=== PATIENT | female | born 1960 | race Caucasian/White ===

== ENCOUNTER 2016-12-16 14:03 | Observation (INO) | payer BC ==
[~2016-12-16] VITALS: Ht 162.6 cm; Wt 73.2 kg
[~2016-12-16 14:03] MED LIST: ACYC400T PO; HYDR-2762 PO; HYDR4TAB PO; OMEP20CA9 PO; ONDA4TAB12 PO; ZOLP5TAB PO
[2016-12-16] MEDS ORDERED: SIMV20TA3 PO (14:24)
[2016-12-16 14:30] VITALS: BP 112/68
[2016-12-16 14:34] LABS: BASO % 0 % (0-3); EOS % 0 % (0-3); HEMATOCRIT 41.4 % (36.0-47.0); LYMPH # 0.8 x10^3/uL (1.0-4.8); LYMPH % 7 % (24-48); MEAN CORPUSCULAR HEMOGLOBIN 30 pg (25-35); MEAN CORPUSCULAR HGB CONC 34 g/dL (31-37); MEAN CORPUSCULAR VOLUME 88 fL (79-100); MONO # 0.5 x10^3/uL (0.0-1.1); MONO % 5 % (0-9); NEUT # 9.1 x10^3uL (1.8-7.7); NEUT % 88 % (31-73); PLATELET COUNT 191 x10^3/uL (140-400); WHITE BLOOD COUNT 10.4 x10^3/uL (4.0-11.0)
[2016-12-16] MEDS ORDERED: fentaNYL PF 100 MCG/2 ML VIAL IV PRN (14:45)
[2016-12-16] MEDS ORDERED: ACETAMINOPHEN 500 MG TABLET PO PRN (14:45)
[2016-12-16] MEDS ORDERED: ONDANSETRON PF 4 MG/2 ML VIAL. IV PRN (14:45)
[2016-12-16] MEDS ORDERED: KETOROLAC 30 MG/ML VIAL. IV PRN (14:45)
[2016-12-16 14:48] LABS: ALBUMIN/GLOBULIN RATIO 1.2 (1.0-1.7); CALCIUM 8.8 mg/dL (8.5-10.1); GFR 57.8; MAGNESIUM 2.1 mg/dL (1.8-2.4); POTASSIUM 3.8 mmol/L (3.5-5.1); TOTAL BILIRUBIN 1.2 mg/dL (0.2-1.0); TOTAL PROTEIN 7.4 g/dL (6.4-8.2)
--- NOTE | 2016-12-16 14:55 | RAD ---
CT head without contrast History: Headache with light sensitivity beginning today. Comparison: None. Procedure: Axial images are obtained of the head from the skull base through the vertex without IV contrast. One or more of the following individualized dose reduction techniques were utilized for the study: Automated exposure control Adjustment of mA and/or kV according to patient's size Use of iterative reconstruction technique. Findings: The ventricles and sulci are normal for the patient's age. No mass-effect, intracranial mass, midline shift, hemorrhage or obvious acute infarction is identified. Basilar cisterns are patent. Bone windows demonstrate no significant calvarial abnormality. The visualized paranasal sinuses appear clear. Impression: No acute intracranial process. Please note that CT can be relatively insensitive to acute ischemic infarction for up to 24 hours after symptom onset.
== END 2016-12-16 17:45 | disposition home or self-care (01) ==
LOC: 1 SOUTH 14:03
PROVIDERS: ADMIT Family Medicine; ATTEND Family Medicine
DX: R51 Headache (principal); R11.0 Nausea; R50.81 Fever presenting with conditions classified elsewhere
CPT/HCPCS: 36415; 70450; 80053; 83605; 83735; 85027; 85651; 87040; 96374; 96375; G0378; G0379; J1885; J3010

== ENCOUNTER 2019-07-19 06:08 | Emergency (ER) | payer BC ==
[~2019-07-19] VITALS: Ht 162.6 cm; Wt 78.0 kg
[~2019-07-19 06:08] MED LIST changes: -HYDR-2762 PO; +HYDR-2765 PO; +OMEP20CA16 PO; -OMEP20CA9 PO; +SIMV20TA18 PO
[2019-07-19] MEDS ORDERED: ONDANSETRON PF 4 MG/2 ML VIAL. ONE (06:14)
[2019-07-19] MEDS ORDERED: IV NORMAL SALINE 1,000ML 1,000 ML IV SCH (06:30)
[2019-07-19] MEDS ORDERED: ONDANSETRON PF 4 MG/2 ML VIAL. IVP ONE (06:30)
--- NOTE | 2019-07-19 06:35 | PHYS DOC ---
Past History Past Medical History: High Cholesterol Past Surgical History: Cholecystectomy Alcohol Use: Rarely Drug Use: None Adult General Chief Complaint Chief Complaint: NAUSEA/VOMITING/DIARRHEA HPI HPI Patient is a 58-year-old female who presents this morning with complaint of epigastric abdominal pain with nausea and vomiting. Patient states that currently pain is only about 3-4 out of 10 but she states the pain waxes and wanes and limits at its worse it's more like a 9 out of 10. She indicates the pain radiates straight into her back. She denies any diarrhea. She does admit to becoming diaphoretic when the pain intensifies. Patient states that she has already had a cholecystectomy. She does admit to some alcohol intake last night, stating that she had one elsa. Patient indicates that they usually have 1 glass of wine a night.[] Review of Systems Review of Systems Constitutional: Denies fever or chills [] Respiratory: Denies cough or shortness of breath [] Cardiovascular: No additional information not addressed in HPI [] GI: Complains of epigastric abdominal pain with nausea and vomiting. Denies diarrhea [] Musculoskeletal: Complains of mid back pain [] Integument: Denies rash or skin lesions [] Neurologic: Denies headache, focal weakness or sensory changes [] All other systems were reviewed and found to be within normal limits, except as documented in this note. Current Medications Current Medications Current Medications Medications (Trade) Dose Ordered Sig/Dorothy Start Time Stop Time Status Last Admin Dose Admin Hydromorphone HCl (Dilaudid) 1 mg 1X ONCE 07/19/19 06:30 07/19/19 06:31 UNV Ondansetron HCl (Zofran) 4 mg 1X ONCE 07/19/19 06:30 07/19/19 06:31 DC 07/19/19 06:26 4 MG Sodium Chloride 1,000 ml @ 1,000 mls/hr Q1H 07/19/19 06:30 07/19/19 07:29 07/19/19 06:26 1,000 MLS/HR Allergies Allergies Allergies Coded Allergies Type Severity Reaction Last Updated Verified No Known Allergies Allergy Unknown 10/16/14 No Physical Exam Physical Exam Constitutional: Well developed, well nourished, no acute distress, non-toxic appearance. [] HENT: Normocephalic, atraumatic, bilateral external ears normal, oropharynx moist, no oral exudates, nose normal. [] Eyes: PERRLA, EOMI, conjunctiva normal, no discharge. [] Neck: Normal range of motion, no tenderness, supple, no stridor. [] Cardiovascular: Regular rate and rhythm[] Lungs & Thorax: Bilateral breath sounds clear to auscultation [] Abdomen: Bowel sounds normal, soft, with moderate epigastric tenderness. [] Skin: Warm, dry, no erythema, no rash. [] Extremities: No tenderness, no cyanosis, no clubbing, ROM intact. [] Neurologic: Alert and oriented X 3, no focal deficits noted. [] EKG EKG [] Radiology/Procedures Radiology/Procedures [] Impressions: PROCEDURE: CT ABD PELV W/ IV CONTRST ONLY CT abdomen pelvis with contrast. HISTORY: Upper abdominal pain CT scan the abdomen pelvis was done using 60 mL Omnipaque 300 contrast. Lung bases are clear. There is no effusion. There is benign liver lesion the inferior right liver unchanged from an old study from August 2014. Patient's had a cholecystectomy. Bile ducts are mildly dilated as is the common duct. Spleen and adrenal glands are normal. Pancreatic lesion is not identified. There are small bilateral renal cysts. There is no adenopathy. There is no bowel obstruction or ascites. Appendix is normal. Uterus and ovaries are unremarkable. There is no free air or ascites or bowel obstruction. IMPRESSION: 1. Previous cholecystectomy. 2. Dilated bile ducts. 3. No other acute finding noted in the abdomen or pelvis. PQRS Compliance Statement: One or more of the following individualized dose reduction techniques were utilized for this examination: 1. Automated exposure control 2. Adjustment of the mA and/or kV according to patient size 3. Use of iterative reconstruction technique Electronically signed by: Jalen Crane MD (07/19/2019 7:34 AM) [facility] DICTATED AND SIGNED BY: JALEN CRANE MD DATE: 07/19/19 0734 Course & Med Decision Making Course & Med Decision Making Pertinent Labs and Imaging studies reviewed. (See chart for details) [] Dragon Disclaimer Dragon Disclaimer This electronic medical record was generated, in whole or in part, using a voice recognition dictation system. Departure Departure: Impression: Primary Impression: Epigastric abdominal pain Additional Impression: Gastritis Disposition: 01 HOME, SELF-CARE Condition: STABLE Referrals: ZACKARY HENSLEY MD (PCP) Patient Instructions: Abdominal Pain, Gastritis, Adult Scripts Ondansetron (ONDANSETRON ODT) 4 Mg Tab.rapdis 1 TAB PO PRN Q6-8HRS PRN for NAUSEA, #12 TAB Prov: EROS CARTER Jr. DO 07/19/19 Hydrocodone Bit/Acetaminophen (NORCO 5-325 TABLET) 1 Each Tablet 1 TAB PO PRN Q6HRS PRN for PAIN, #12 TAB 0 Refills Prov: EROS CARTER Jr. DO 07/19/19 Pantoprazole Sodium (PROTONIX) 40 Mg Tablet.dr 1 TAB PO DAILY for gastritis, #30 TAB Prov: EROS CARTER Jr. DO 07/19/19 Problem Qualifiers Additional Impression: Gastritis Gastritis type: unspecified gastritis Chronicity: unspecified Gastritis bleeding: without bleeding Qualified Codes: K29.70 - Gastritis, unspecified, without bleeding EROS CARTER Jr. DO Jul 19, 2019 06:35
[2019-07-19 06:36] LABS: BASO # 0.1 x10^3/uL (0.0-0.2); BASO % 1 % (0-3); EOS # 0.1 x10^3/uL (0.0-0.7); EOS % 1 % (0-3); HEMATOCRIT 41.2 % (36.0-47.0); HEMOGLOBIN 13.8 g/dL (12.0-15.5); LYMPH # 2.4 x10^3/uL (1.0-4.8); LYMPH % 28 % (24-48); MEAN CORPUSCULAR HEMOGLOBIN 31 pg (25-35); MEAN CORPUSCULAR HGB CONC 34 g/dL (31-37); MEAN CORPUSCULAR VOLUME 91 fL (79-100); MONO # 0.6 x10^3/uL (0.0-1.1); MONO % 7 % (0-9); NEUT # 5.6 x10^3uL (1.8-7.7); NEUT % 64 % (31-73); PLATELET COUNT 253 x10^3/uL (140-400); RED BLOOD COUNT 4.51 x10^6/uL (3.50-5.40); RED CELL DISTRIBUTION WIDTH 13.1 % (11.5-14.5); WHITE BLOOD COUNT 8.7 x10^3/uL (4.0-11.0)
[2019-07-19 06:40] LABS: CALCIUM 8.3 mg/dL (8.5-10.1); GFR 57.4; POTASSIUM 3.8 mmol/L (3.5-5.1)
[2019-07-19 06:46] LABS: ALBUMIN 3.3 g/dL (3.4-5.0); TOTAL BILIRUBIN 1.1 mg/dL (0.2-1.0); TOTAL PROTEIN 6.6 g/dL (6.4-8.2)
[2019-07-19 06:54] LABS: BACTERIA,URINE 0 /HPF (0-FEW); BILIRUBIN,URINE NEG (NEG); CLARITY,URINE CLEAR; COLOR,URINE YELLOW; GLUCOSE,URINE NEG (NEG); NITRITE,URINE NEG (NEG); RBC,URINE 0 /HPF (0-2); UROBILINOGEN,URINE 0.2 mg/dL (0.2 mg/dL); WBC,URINE 0 /HPF (0-4)
[2019-07-19] MEDS ORDERED: HYDROmorphone PF 1 MG/ML DISP.SYRIN IV ONE (07:00)
[2019-07-19] MEDS ORDERED: IOHEXOL 300 MG/ML 75 ML VIAL. IV ONE (07:00)
[2019-07-19] MEDS ORDERED: CONTRAST GIVEN MC PRN (07:15)
--- NOTE | 2019-07-19 07:37 | RAD ---
CT abdomen pelvis with contrast. HISTORY: Upper abdominal pain CT scan the abdomen pelvis was done using 60 mL Omnipaque 300 contrast. Lung bases are clear. There is no effusion. There is benign liver lesion the inferior right liver unchanged from an old study from August 2014. Patient's had a cholecystectomy. Bile ducts are mildly dilated as is the common duct. Spleen and adrenal glands are normal. Pancreatic lesion is not identified. There are small bilateral renal cysts. There is no adenopathy. There is no bowel obstruction or ascites. Appendix is normal. Uterus and ovaries are unremarkable. There is no free air or ascites or bowel obstruction. IMPRESSION: 1. Previous cholecystectomy. 2. Dilated bile ducts. 3. No other acute finding noted in the abdomen or pelvis. PQRS Compliance Statement: One or more of the following individualized dose reduction techniques were utilized for this examination: 1. Automated exposure control 2. Adjustment of the mA and/or kV according to patient size 3. Use of iterative reconstruction technique Electronically signed by: Jalen Cary MD (07/19/2019 7:34 AM) [facility]
[2019-07-19] MEDS ORDERED: FAMOTIDINE 20 MG/2 ML VIAL IVP ONE (08:00)
[2019-07-19] MEDS ORDERED: LIDO:MAALOX 1:1 20 ML SINGLE DOSE. PO ONE (08:00)
[2019-07-19 08:14] VITALS: BP 138/58
[2019-07-19] MEDS ORDERED: PANT40TA3 PO (08:27)
[2019-07-19] MEDS ORDERED: HYDR-3165 PO (08:30)
[2019-07-19] MEDS ORDERED: ONDA4TAB12 PO (08:30)
--- NOTE | 2019-07-20 12:09 | EKG ---
[address] [address] Test Date: 2019-07-19 Test Time: 06:29:20 Pat Name: ABHIJIT FLYNN Department: Room: Gender: F Category Director: : 1960 Requested By: EROS CARTER Order Number: [id number] Reading MD: Measurements Intervals [place] Rate: 67 P: -29 DC: 146 QRS: 3 QRSD: 76 T: 14 QT: 414 QTc: 440 Interpretive Statements SINUS RHYTHM NORMAL ECG RI6.01 No previous ECG available for comparison
== END 2019-07-19 08:56 | disposition home or self-care (01) ==
LOC: ER 06:08
DX: K29.70 Gastritis, unspecified, without bleeding (principal); E78.00 Pure hypercholesterolemia, unspecified; Z90.49 Acquired absence of other specified parts of digestive tract
CPT/HCPCS: 36415; 74177; 80053; 81001; 83690; 85025; 96361; 96374; 96375; 99285; J1170; J2405; J3490; Q9967; J7030